=== PATIENT | female | born 1950 | race Caucasian/White ===

== ENCOUNTER 2020-06-17 11:14 | Emergency (ER) | payer OTHER ==
[~2020-06-17] VITALS: Ht 152.4 cm; Wt 103.0 kg
== END 2020-06-17 14:35 | disposition home or self-care (01) ==
LOC: ED 11:14
DX: S41.112A Laceration without foreign body of left upper arm, initial encounter (principal); S41.111A Laceration without foreign body of right upper arm, initial encounter; S16.1XXA Strain of muscle, fascia and tendon at neck level, initial encounter; Z91.040 Latex allergy status; V49.9XXA Car occupant (driver) (passenger) injured in unspecified traffic accident, initial encounter; Y93.89 Activity, other specified; Y92.89 Other specified places as the place of occurrence of the external cause; Y99.8 Other external cause status